=== PATIENT | female | born 2000 | race African-American/Black ===

== ENCOUNTER 2019-07-24 15:23 | Emergency (ER) | payer SELFPAY ==
[~2019-07-24] VITALS: Ht 162.6 cm; Wt 68.2 kg
[2019-07-24 16:01] LABS: BASOPHILS % (AUTO) 0.4 % (0.0-2.0); EOSINOPHILS % (AUTO) 1.3 % (1.0-6.0); HEMATOCRIT 37.3 % (36-46); HEMOGLOBIN 12.6 g/dL (12.0-16.0); LYMPHOCYTES # (AUTO) 2.5 K/uL (1.0-4.8); LYMPHOCYTES % (AUTO) 26.6 % (22.0-44.0); MEAN CORPUSCULAR HEMOGLOBIN 28.3 pg (26.0-34.0); MEAN CORPUSCULAR HGB CONC 33.8 G/dL (31.0-37.0); MEAN CORPUSCULAR VOLUME 84 fL (80-100); MONOCYTES # (AUTO) 0.9 K/uL (0.1-1.0); MONOCYTES % (AUTO) 9.2 % (2.0-9.0); NEUTROPHILS # (AUTO) 5.8 K/uL (1.8-7.7); NEUTROPHILS % (AUTO) 62.5 % (40.0-70.0); PLATELET COUNT (AUTO) 319 K/uL (150-450); RED BLOOD CELL COUNT(AUTO) 4.46 MIL/uL (4.00-5.20); RED CELL DISTRIBUTION WIDTH 13.4 % (11.5-14.5)
[2019-07-24 16:29] LABS: ANION GAP 9 mmol/L (8-16); CALCIUM, TOTAL 9.1 mg/dL (8.8-10.5); CARBON DIOXIDE 25 mmol/L (22-29); CHLORIDE 101 mmol/L (98-107); CREATININE 0.68 mg/dL (0.60-1.30); GLOMERULAR FILTR. RATE CALC > 60 mL/min (>60); GLUCOSE,RANDOM 92 mg/dL (70-110); POTASSIUM 3.6 mmol/L (3.5-5.1); SODIUM SERUM 135 mmol/L (136-145); UREA NITROGEN, BLOOD 10 mg/dL (7-18)
[2019-07-24 16:51] LABS: HCG,QUANTITATIVE 101 mIU/mL (0-6)
[2019-07-24 17:10] LABS: ALANINE AMINOTRANSFERASE 21 U/L (12-78); ALBUMIN 3.4 g/dL (3.4-5.0); ALKALINE PHOSPHATASE 69 U/L (46-116); ASPARTATE AMINOTRANSFERASE 16 U/L (15-37); BILIRUBIN,TOTAL 0.3 mg/dL (0.1-1.0); TOTAL PROTEIN, SERUM 7.5 g/dL (6.4-8.2)
[2019-07-24 21:15] VITALS: BP 120/67
== END 2019-07-24 21:59 | disposition home or self-care (01) ==
LOC: EMS 15:25
DX: O20.0 Threatened abortion (principal); F17.200 Nicotine dependence, unspecified, uncomplicated; Z31.82 Encounter for Rh incompatibility status; Z3A.01 Less than 8 weeks gestation of pregnancy
CPT/HCPCS: 36415; 36430; 76801; 76817; 80053; 84702; 85025; 86900; 86901; 99285; J2788

== ENCOUNTER 2019-07-27 11:13 | Emergency (ER) | payer OTHER ==
[~2019-07-27] VITALS: Ht 165.1 cm; Wt 86.4 kg
[2019-07-27] MEDS ORDERED: ACETAMINOPHEN 500 MG TABLET ONE (14:12)
[2019-07-27] MEDS ORDERED: ACETAMINOPHEN 500 MG TABLET PO ONE (14:15)
[2019-07-27 16:47] VITALS: BP 119/70
== END 2019-07-27 16:49 | disposition home or self-care (01) ==
LOC: EMS 11:14
DX: O99.511 Diseases of the respiratory system complicating pregnancy, first trimester (principal); O99.331 Smoking (tobacco) complicating pregnancy, first trimester; J06.9 Acute upper respiratory infection, unspecified